=== PATIENT | male | born 1990 | race Caucasian/White ===

== ENCOUNTER 2022-06-17 15:51 | Emergency (ER) | payer MEDICAID ==
[~2022-06-17] VITALS: Ht 157.5 cm; Wt 59.0 kg
[2022-06-17 15:57] VITALS: BP 144/92
[2022-06-17] MEDS ORDERED: TRANEXAMIC ACID 1,000 MG/10 ML TP ONE (17:15)
== END 2022-06-17 18:26 | disposition home or self-care (01) ==
LOC: ER 16:07
DX: K06.8 Other specified disorders of gingiva and edentulous alveolar ridge (principal)
CPT/HCPCS: 99281